=== PATIENT | female | born 2000 | race Caucasian/White ===

== ENCOUNTER 2024-02-13 16:24 | Emergency (ER) | payer BC ==
[~2024-02-13] VITALS: Ht 170.2 cm; Wt 61.4 kg
[2024-02-13 16:31] VITALS: TEMP 97.8
[2024-02-13] MEDS ORDERED: CLINDAMYCIN 600mg IN NS 50ML 50 ML IV ONE (17:45)
[2024-02-13] MEDS: clindamycin 600mg/D5W 50ml 50 ML IV ONE (18:08)
[2024-02-13] MEDS ORDERED: HYDR-3965 PO (18:38)
[2024-02-13 18:56] VITALS: BP 120/68; PULSE 86; RESP 16; O2SAT 99
== END 2024-02-13 18:58 | disposition home or self-care (01) ==
LOC: EDBD 16:26 → ER 16:26
DX: K04.7 Periapical abscess without sinus (principal); Z88.0 Allergy status to penicillin
CPT/HCPCS: 96365; 99284; J3490